=== PATIENT | female | born 1980 | race Caucasian/White ===

== ENCOUNTER 2016-12-18 20:31 | Emergency (ER) | payer OTHER ==
[~2016-12-18 20:31] MED LIST: ADVAIR 250-501 EACH IH; ALBUTEROL17 GM; ALBUTEROL17 GM INH; ALBUTEROL2.5 MG/0.5 IH; ALLERCLEAR10 MG PO; AMOXICILLIN PO; CELEXA PO; CIPRO PO; CIPRO500 MG/5 M PO; COLACE; COLACE PO; DARVOCET-N 1001 TAB PO; DIAZEPAM PO; DICLOFENAC PO; FERROUS SULFATE PO; FLEXERIL PO; FLEXERIL10 MG; FLEXERIL10 MG PO; GABAPENTIN800 MG PO; HYDROCODONE-A1 UDTA4 PO; HYDROCODONE-APA1 T56 PO; IRON PILLS; IRON PO; KEFLEX PO; KETOPROFEN PO; LORTAB 10-5001 EACH PO; LORTAB 5/500 TA1 TA1 PO; LORTAB 7.5-5001 TAB PO; LORTAB 7.51 TAB 7.5/ PO; MIRALAX17 GM PO; NEURONTIN800 MG PO; NEXIUM PO; NIFEREX-150150 MG PO; NILSTAT1 ML DOB; NO MEDICATIONS; NORCO 5/325 TAB1 TAB PO; PAXIL40 MG PO; PERCOCET PO; PERCOCET5/325 PO; PHENERGAN25 M1; PHENERGAN25 MG PO; PREDNISONE; PREDNISONE PO; PRENATAL MULITV1 TAB; PRILOSEC PO; PROTONIX PO; PROTONIX20 MG PO; PROVENTIL INH0.5 ML; PYRIDIUM PO; PYRIDIUM100 MG PO; REGLAN10 MG PO; SENNA S TABLET1 TAB; SEPTRA DS; SKELAXIN PO; TYLOX 5/500 CAP1 CAP PO; ULTRAM PO; VICODIN 5/1 TAB 5/50 PO; VICODIN 5/500 T1 TAB PO; VICODIN PO; WELLBUTRIN PO; ZITHROMAX; ZITHROMAX PO; ZOCOR PO; ZOCOR20 MG PO; ZYRTEC PO; ZYRTEC10 M2 PO
[2016-12-18] MEDS ORDERED: VYVANSE20 MG (20:46)
[2016-12-18] MEDS ORDERED: NEURONTIN (20:46)
[2016-12-18] MEDS ORDERED: COLACE (20:46)
[2016-12-18] MEDS ORDERED: SUBOXONE 12 MG1 EACH (20:46)
[2016-12-18] MEDS ORDERED: PRILOSEC (20:47)
[2016-12-18] MEDS ORDERED: ALBUTEROL17 GM (20:47)
[2016-12-18 21:29] LABS: URINE SOURCE CLEAN CATCH
[2016-12-18 21:31] LABS: URINE APPEARANCE CLEAR; URINE BILIRUBIN NEG (NEG); URINE BLOOD 1+ (NEG); URINE COLOR YELLOW; URINE GLUCOSE NEG (NORM); URINE KETONE NEG (NEG); URINE LEUKOCYTE ESTERASE NEG (NEG); URINE NITRATE NEG (NEG); URINE PROTEIN NEG (NEG); URINE SPECIFIC GRAVITY <=1.005 (1.003-1.035); URINE UROBILINOGEN 0.2 MG/DL (NORM)
[2016-12-18 21:38] LABS: MICRO INDICATED? YES
[2016-12-18 21:43] LABS: BASOPHIL# 0.1 X10e3 (0-0.3); BASOPHIL% 1.4 % (0-2.5); EOSINOPHIL# 0.1 X10e3 (0-0.7); EOSINOPHIL% 1.3 % (0.0-7.0); HEMATOCRIT 33.1 % (35.0-45.0); HEMOGLOBIN 11.2 gm/dL (12.0-16.0); LYMPHOCYTE# 1.5 X10e3 (1.0-3.5); LYMPHOCYTE% 24.7 % (17.0-45.0); MEAN CELL VOLUME 79.2 FL (83-96); MEAN CORPUSCULAR HEMOGLOBIN 26.7 PG (28-34); MEAN CORPUSCULAR HGB CONC 33.7 g/dL (30-36); MEAN PLATELET VOLUME 10.2 FL (6.5-11.5); MONOCYTE# 0.4 X10e3 (0-1.0); MONOCYTE% 7.1 % (3.0-12.0); NEUTROPHIL# 3.9 X10e3 (1.5-7.1); NEUTROPHIL% 65.5 % (40-75); PLATELET COUNT 182 X10e3 (140-420); RED BLOOD COUNT 4.18 X10e (3.90-5.30); RED CELL DISTRIBUTION WIDTH 14.6 % (11.0-15.5); WHITE BLOOD COUNT 5.9 X10e3 (4.0-10.5)
[2016-12-18 21:45] LABS: DIFF IND NO
[2016-12-18 21:46] LABS: CULTURE INDICATED? NO; URINE BACTERIA NEG (NEG); URINE SQUAMOUS EPITHELIAL CELL OCCAS /[HPF]; URINE WBC 0-2 /[HPF] (0-5)
[2016-12-18 22:00] LABS: ALKALINE PHOSPHATASE 52 U/L (32-92); ALT (SGPT) 19 U/L (10-40); AST (SGOT) 24 U/L (10-42); BILIRUBIN,TOTAL 0.2 mg/dL (0.2-2.0); BLOOD UREA NITROGEN 10 mg/dL (9-23); CARBON DIOXIDE 29 mmol/L (22-31); CHLORIDE 101 mmol/L (100-111); CREATININE SERUM 0.8 mg/dL (0.6-1.4); GLOM FILT RATE Estimated 96.3 mL/min (>60); GLUCOSE FASTING 114 mg/dL (70-110); POTASSIUM 3.7 mmol/L (3.5-5.1); PROTEIN TOTAL SERUM 6.8 g/dL (6.0-8.3); SODIUM 136 mmol/L (135-145)
[2016-12-18 22:01] LABS: BILIRUBIN, DIRECT <0.1 mg/dL (0.0-0.2); BILIRUBIN,INDIRECT 0.1 mg/dL (0.0-0.9)
== END 2016-12-18 22:39 | disposition home or self-care (01) ==
LOC: SED 20:31
PROVIDERS: Physician Assistant
DX: N93.8 Other specified abnormal uterine and vaginal bleeding (principal); R03.0 Elevated blood-pressure reading, without diagnosis of hypertension; J45.909 Unspecified asthma, uncomplicated; F41.9 Anxiety disorder, unspecified; F32.9 Major depressive disorder, single episode, unspecified; Z98.890 Other specified postprocedural states; Z79.899 Other long term (current) drug therapy; F17.200 Nicotine dependence, unspecified, uncomplicated; Z98.51 Tubal ligation status
CPT/HCPCS: 36415; 80048; 80076; 81003; 84703; 85025; 96361; 96374; 99284; J1885